=== PATIENT | female | born 1970 | race Caucasian/White ===

== ENCOUNTER 2017-04-18 15:26 | Emergency (ER) | payer SELFPAY ==
[2017-04-18] MEDS ORDERED: Metoclopramide HCl 10 MG/2 ML VIAL ONE (16:25)
[2017-04-18] MEDS ORDERED: diphenhydrAMINE 50 MG/ML VIAL ONE (16:25)
--- NOTE | 2017-04-18 17:05 | CT ---
NONCONTRAST HEAD CT: Comparison: 03-20-07 History: Headache. Technique: Noncontrast head CT is performed from skull base to skull vertex. FINDINGS: No parenchymal hemorrhage. No extraaxial hematoma. No midline shift. Basilar cisterns are patent. Br ain volume age appropriate. Cortical gottlieb white matter differentiation is preserved. Ventricles and sulci are patent and symmetric. Calvarium is intact. Adequate aeration of the sinuses and mastoid air cells. IMPRESSION: No acute intracranial process. POS: [facility]
[2017-04-18] MEDS ORDERED: Ketorolac Tromethamine 30 MG/ML VIAL ONE (17:08)
== END 2017-04-18 17:55 | disposition home or self-care (01) ==
LOC: ERS 15:26
DX: G43.909 Migraine, unspecified, not intractable, without status migrainosus (principal); J45.909 Unspecified asthma, uncomplicated; F41.9 Anxiety disorder, unspecified; Z79.899 Other long term (current) drug therapy
CPT/HCPCS: 70450; 96365; 96375; J1200; J1885; J2765

== ENCOUNTER 2020-05-27 11:38 | Outpatient (CLI) | payer BC ==
--- NOTE | 2020-05-27 13:24 | RAD ---
LEFT SHOULDER 3 VIEWS: HISTORY: Shoulder pain. FINDINGS: No fracture or dislocation. AC joint normally aligned. No significant degenerative change. IMPRESSION: No acute finding. POS: [facility]
== END 2020-05-27 11:39 | disposition home or self-care (01) ==
LOC: BICRAD 11:38
PROVIDERS: ATTEND Specialist
DX: M25.512 Pain in left shoulder (principal)

== ENCOUNTER 2022-07-24 12:14 | Emergency (ER) | payer BC, OTHER ==
[2022-07-24 13:29] LABS: SARS-CoV-2 NAA Rapid Test Not Detected (NotDetected)
[2022-07-24] MEDS ORDERED: Ondansetron ODT 4 MG TAB ONE (13:46)
== END 2022-07-24 14:04 | disposition home or self-care (01) ==
LOC: ERS 12:14
DX: J06.9 Acute upper respiratory infection, unspecified (principal); R11.2 Nausea with vomiting, unspecified; Z11.2 Encounter for screening for other bacterial diseases
CPT/HCPCS: 71045; Q0162

== ENCOUNTER 2022-08-07 20:15 | Emergency (ER) | payer OTHER | END 2022-08-07 21:49 | disposition left against medical advice (07) | LOC: ERS 20:15 | DX: Z53.21 Procedure and treatment not carried out due to patient leaving prior to being seen by health care provider (principal) ==

== ENCOUNTER 2024-01-03 16:40 | Outpatient (CLI) | payer OTHER | END 2024-01-03 16:41 | disposition home or self-care (01) | LOC: SCSRAD 16:40 | PROVIDERS: ATTEND Family Medicine | DX: S46.211A Strain of muscle, fascia and tendon of other parts of biceps, right arm, initial encounter (principal); M19.011 Primary osteoarthritis, right shoulder; M85.611 Other cyst of bone, right shoulder ==

== ENCOUNTER 2024-07-13 21:03 | Emergency (ER) | payer OTHER ==
[2024-07-13] MEDS ORDERED: Dexamethasone 10 MG/ML VIAL ONE (21:57)
[2024-07-13] MEDS ORDERED: Acetaminophen 500 MG TAB ONE (21:57)
[2024-07-13] MEDS ORDERED: Ketorolac Tromethamine 30 MG (1 mL) VIAL ONE (21:57)
[2024-07-13 22:48] LABS: #Basophils 0.05 10x3/uL (0.0-0.2); %Lymphocytes 39.8 % (21.0-51.0); %Monocytes 8.2 % (0.0-10.0); %Neutrophils 42.8 % (42.0-75.0); Hematocrit 36.2 % (36.0-47.0); Hemoglobin 12.1 g/dL (12.0-16.0); Mean Corpuscular HGB CONC 33.4 g/dL (32.0-36.0); Mean Corpuscular Hemoglobin 28.9 pg (27.0-31.0); Mean Corpuscular Volume 86.4 fL (78.0-98.0); Mean Platelet Volume 9.1 fL (7.4-10.4); Platelet Count 327 10x3/uL (130-400); RBC Distribution Width 12.7 % (11.5-14.5); Red Blood Cell (RBC) Count 4.19 mill/uL (4.20-5.40)
[2024-07-13 23:07] LABS: ALT (SGPT) 18 U/L (8-55); AST (SGOT) 18 U/L (5-34); Albumin 3.8 g/dL (3.5-5.0); Alkaline Phosphatase 95 U/L (40-110); Anion Gap 16 mmol/L (10-20); BUN (Urea Nitrogen) 14 mg/dL (9.8-20.1); Bilirubin, Total 0.2 mg/dL (0.2-1.2); Calc. Creatinine Clearance 0 mL/min (70-130); Calcium 9.3 mg/dL (7.8-10.44); Carbon Dioxide 20 mmol/L (22-29); Chloride 106 mmol/L (98-107); Estimated GFR 104; Globulin 3.1 g/dL (2.4-3.5); Glucose 95 mg/dL (70-105); Potassium 3.9 mmol/L (3.5-5.1); Protein, Total 6.9 g/dL (6.0-8.3); Sodium 138 mmol/L (136-145)
[2024-07-13 23:08] LABS: Troponin I Less than 0.010 ng/mL (< 0.028)
== END 2024-07-13 23:56 | disposition home or self-care (01) ==
LOC: ERS 21:03
DX: B02.9 Zoster without complications (principal); R29.700 NIHSS score 0; I10 Essential (primary) hypertension
CPT/HCPCS: 36415; 70450; 71045; 80053; 84484; 85025; 93005; 96372; J1100; J1885

== ENCOUNTER 2024-12-22 15:34 | Inpatient (IN) | payer OTHER ==
[2024-12-22] MEDS ORDERED: Ipratropium Bromide 2.5 ml Neb ONE (15:57)
[2024-12-22] MEDS ORDERED: methylPREDNISolone Sod Succ/PF 125 MG/2 ML VIAL ONE (15:57)
[2024-12-22] MEDS ORDERED: Albuterol 2.5 MG (3 mL) NEB ONE (15:58)
[2024-12-22] MEDS ORDERED: Magnesium 2 GM/50 ML BAG (IN WATER) ONE (15:58)
[2024-12-22 16:02] LABS: #Basophils 0.06 10x3/uL (0.0-0.2); #Eosinophils 0.67 10x3/uL (0.0-0.7); #Monocytes 0.36 10x3/uL (0.11-0.59); #Neutrophils 1.91 10x3/uL (1.40-6.50); %Basophils 1.2 % (0.0-1.0); %Eosinophils 13.3 % (0.0-10.0); %Lymphocytes 40.4 % (21.0-51.0); %Monocytes 7.1 % (0.0-10.0); %Neutrophils 37.8 % (42.0-75.0); Hematocrit 34.4 % (36.0-47.0); Hemoglobin 11.3 g/dL (12.0-16.0); Mean Corpuscular HGB CONC 32.8 g/dL (32.0-36.0); Mean Corpuscular Hemoglobin 29.6 pg (27.0-31.0); Mean Corpuscular Volume 90.1 fL (78.0-98.0); Mean Platelet Volume 9.5 fL (7.4-10.4); Platelet Count 334 10x3/uL (130-400); RBC Distribution Width 13.4 % (11.5-14.5); Red Blood Cell (RBC) Count 3.82 mill/uL (4.20-5.40); White Blood Cell (WBC) Count 5.05 10x3/uL (4.8-10.8)
[2024-12-22 16:21] LABS: Troponin I 0.099 ng/mL (< 0.028)
[2024-12-22 16:29] LABS: ALT (SGPT) 23 U/L (Less than 34); AST (SGOT) 54 U/L (11-34); Albumin 7.9 g/dL (3.1-4.5); Alkaline Phosphatase 71 U/L (40-110); Anion Gap 15 mmol/L (10-20); BUN (Urea Nitrogen) Less than 4 mg/dL (9.8-20.1); Bilirubin, Total 0.4 mg/dL (0.3-1.2); Calc. Creatinine Clearance 0 mL/min (70-130); Carbon Dioxide 24 mmol/L (22-29); Chloride 110 mmol/L (98-107); Estimated GFR 27; Globulin -1.1 g/dL (2.4-3.5); Glucose 94 mg/dL (70-105); Potassium 3.5 mmol/L (3.5-5.1); Protein, Total 6.8 g/dL (6.0-8.3); Sodium 145 mmol/L (136-145)
[2024-12-22 17:27] LABS: Actual Bicarbonate (HCO3v) 21.9 mEq/L (22-28); Analyzer IN Cardio ER; Base Excess -3.6 mEq/L (-2.0 to +3.0); Calcium, Ionized (venous) 1.09 mmol/L (1.16-1.32); Chloride (VBG) 107 mmol/L (98-106); Hematocrit-VBG 35 % (36.0-47.0); Hemoglobin (Hb) 11.8 g/dL (11.7-16.0); Potassium (VBG) 3.32 mmol/L (3.70-5.30); Sodium 141 mmol/L (133-146); pH (venous) 7.345 (7.32-7.43)
[2024-12-22] MEDS ORDERED: Aspirin Chewable 81 MG TAB ONE (18:09)
[2024-12-22] MEDS ORDERED: Acetaminophen 500 MG TAB ONE (18:09)
[2024-12-22 18:58] LABS: Phosphorus 4.1 mg/dL (2.5-4.5)
[2024-12-22 19:00] LABS: Anion Gap 15 mmol/L (10-20); BUN (Urea Nitrogen) 9 mg/dL (9.8-20.1); Calc. Creatinine Clearance 0 mL/min (70-130); Calcium 9.1 mg/dL (7.8-10.44); Carbon Dioxide 22 mmol/L (22-29); Chloride 109 mmol/L (98-107); Estimated GFR 86; Glucose 95 mg/dL (70-105); Potassium 3.5 mmol/L (3.5-5.1); Sodium 142 mmol/L (136-145)
[2024-12-22 19:59] LABS: Troponin I 0.086 ng/mL (< 0.028)
[2024-12-22] MEDS ORDERED: Albuterol 2.5 MG (3 mL) NEB NEB PRN (20:04)
[2024-12-22 21:01] LABS: Anion Gap 13 mmol/L (10-20); BUN (Urea Nitrogen) 8 mg/dL (9.8-20.1); Calc. Creatinine Clearance 0 mL/min (70-130); Calcium 8.7 mg/dL (7.8-10.44); Carbon Dioxide 21 mmol/L (22-29); Chloride 111 mmol/L (98-107); Estimated GFR 104; Glucose 103 mg/dL (70-105); Magnesium 2.3 mg/dL (1.6-2.6); Potassium 3.7 mmol/L (3.5-5.1); Sodium 141 mmol/L (136-145)
[2024-12-22] MEDS: Doxycycline 100 MG in Sodium Chloride 0.9% 100 ML IVPB SCH (21:16)
[2024-12-22] MEDS: Ipratropium/Albuterol 3 ML NEB NEB SCH (21:57)
[2024-12-22 22:34] VITALS: BMI 26.4
[2024-12-22 23:00] LABS: Troponin I 0.066 ng/mL (< 0.028)
[2024-12-22] MEDS: Benzonatate 100 MG CAP PO PRN (23:55)
[2024-12-22] MEDS: Melatonin 3 MG TAB PO PRN (23:55)
[2024-12-22] MEDS: methylPREDNISolone Sod Succ 40 MG VIAL IVP SCH (23:58)
[2024-12-23] MEDS ORDERED: Acetaminophen 325 MG TAB PO PRN
[2024-12-23] MEDS: Fioricet 325/50/40 mg Tablet PO PRN (01:23)
[2024-12-23 04:18] LABS: #Basophils Less than 0.03 10x3/uL (0.0-0.2); #Eosinophils Less than 0.03 10x3/uL (0.0-0.7); #Monocytes 0.06 10x3/uL (0.11-0.59); %Basophils 0.2 % (0.0-1.0); %Lymphocytes 9.8 % (21.0-51.0); %Monocytes 1.4 % (0.0-10.0); %Neutrophils 88.4 % (42.0-75.0); Hematocrit 37.2 % (36.0-47.0); Hemoglobin 11.6 g/dL (12.0-16.0); Mean Corpuscular HGB CONC 31.2 g/dL (32.0-36.0); Mean Corpuscular Hemoglobin 28.6 pg (27.0-31.0); Mean Corpuscular Volume 91.9 fL (78.0-98.0); Mean Platelet Volume 9.9 fL (7.4-10.4); Platelet Count 300 10x3/uL (130-400); RBC Distribution Width 13.5 % (11.5-14.5); Red Blood Cell (RBC) Count 4.05 mill/uL (4.20-5.40); White Blood Cell (WBC) Count 4.41 10x3/uL (4.8-10.8)
[2024-12-23 04:48] LABS: Anion Gap 11 mmol/L (10-20); BUN (Urea Nitrogen) 8 mg/dL (9.8-20.1); Calc. Creatinine Clearance 119 mL/min (70-130); Calcium 8.7 mg/dL (7.8-10.44); Carbon Dioxide 20 mmol/L (22-29); Chloride 110 mmol/L (98-107); Estimated GFR 105; Glucose 141 mg/dL (70-105); Magnesium 1.9 mg/dL (1.6-2.6); Potassium 4.2 mmol/L (3.5-5.1); Sodium 137 mmol/L (136-145)
[2024-12-23] MEDS: Budesonide 0.5 MG/2 ML NEB INH SCH (07:28)
[2024-12-23] MEDS: Enoxaparin 40 MG (0.4 mL) SYRINGE SC SCH (09:04)
[2024-12-23] MEDS: Ondansetron PF 4 MG/2 ML Vial IVP PRN (09:06)
[2024-12-23 11:42] VITALS: BP 123/77; TEMP 97.9
[2024-12-23] MEDS: ALPRAZolam 0.25 MG TAB PO PRN (14:28)
[2024-12-23] MEDS: SUMAtriptan Succinate 25 MG TAB PO SCH (14:30)
[2024-12-23] MEDS ORDERED: Montelukast Sodium 10 mg Tablet PO SCH (21:00)
[2024-12-25 13:13] LABS: A/G Ratio 1.3 (0.7-1.7); Albumin 3.6 g/dL (2.9-4.4); Alpha 1 0.3 g/dL (0.0-0.4); Alpha 2 0.8 g/dL (0.4-1.0); Gamma 0.7 g/dL (0.4-1.8); Globulin, Total 2.7 g/dL (2.2-3.9); M-Spike Not Observed g/dL (Not Observed)
[2024-12-25 13:14] LABS: Albumin-Ur 36.3 % (.); Alpha 2 - Ur 16.3 % (.); Beta-Ur 32.1 % (.); Gamma-Ur 4.3 % (.); M-Spike,% Not Observed % (Not Observed); Protein, Urine 4.9 mg/dL (Not Estab.)
== END 2024-12-23 18:52 | disposition home or self-care (01) | DRG 202 ==
LOC: ERS 15:34 → PCU 18:20
PROVIDERS: ADMIT Internal Medicine; ATTEND Internal Medicine
DX: J45.901 Unspecified asthma with (acute) exacerbation (principal); C90.00 Multiple myeloma not having achieved remission; N17.9 Acute kidney failure, unspecified; I5A Non-ischemic myocardial injury (non-traumatic); I31.39 Other pericardial effusion (noninflammatory); N18.4 Chronic kidney disease, stage 4 (severe); I10 Essential (primary) hypertension; F41.9 Anxiety disorder, unspecified; E83.52 Hypercalcemia; D64.9 Anemia, unspecified; Z98.890 Other specified postprocedural states; Z90.79 Acquired absence of other genital organ(s); Z87.09 Personal history of other diseases of the respiratory system; Z87.891 Personal history of nicotine dependence; Z79.899 Other long term (current) drug therapy
CPT/HCPCS: 36415; 36416; 71046; 71250; 74176; 80048; 80053; 82306; 82805; 83735; 83880; 83970; 84100; 84155; 84156; 84165; 84166; 84484; 85025; 87428; 93005; 93306; 94640; 96374; 96375; J1650; J2405; J2919; J3475; J7611; J7620; J7626; J7644

== ENCOUNTER 2025-04-19 08:07 | Outpatient (CLI) | payer OTHER | END 2025-04-19 08:08 | disposition home or self-care (01) | LOC: RAD 08:07 | PROVIDERS: ATTEND Internal Medicine | DX: R06.00 Dyspnea, unspecified (principal) | CPT/HCPCS: 71046 ==

== ENCOUNTER 2025-06-10 13:51 | Emergency (ER) | payer OTHER ==
[~2025-06-10 13:51] MED LIST: Iopamidol-370 76% 500 ML MDV (1 ML CHARGE) ONE
[2025-06-10] MEDS ORDERED: Acetaminophen 500 MG TAB ONE (14:52)
[2025-06-10 16:42] LABS: #Basophils 0.04 10x3/uL (0.0-0.2); #Eosinophils 0.03 10x3/uL (0.0-0.7); #Monocytes 0.28 10x3/uL (0.11-0.59); #Neutrophils 5.21 10x3/uL (1.40-6.50); %Basophils 0.6 % (0.0-1.0); %Eosinophils 0.4 % (0.0-10.0); %Lymphocytes 16.3 % (21.0-51.0); %Monocytes 4.2 % (0.0-10.0); %Neutrophils 78.2 % (42.0-75.0); Hematocrit 40.6 % (36.0-47.0); Hemoglobin 13.1 g/dL (12.0-16.0); Mean Corpuscular Hemoglobin 28.1 pg (27.0-31.0); Mean Corpuscular Volume 87.1 fL (78.0-98.0); Platelet Count 397 10x3/uL (130-400); Red Blood Cell (RBC) Count 4.66 mill/uL (4.20-5.40); White Blood Cell (WBC) Count 6.67 10x3/uL (4.8-10.8)
[2025-06-10 17:14] LABS: INR-International Normal Ratio 0.9; Prothrombin Time 12.6 sec (12.0-14.7)
[2025-06-10 17:15] LABS: PTT 29.2 sec (22.9-36.1)
[2025-06-10 17:17] LABS: ALT (SGPT) 24 U/L (Less than 34); AST (SGOT) 22 U/L (11-34); Albumin 4.3 g/dL (3.1-4.5); Alkaline Phosphatase 85 U/L (40-110); Anion Gap 16 mmol/L (10-20); BUN (Urea Nitrogen) 18 mg/dL (9.8-20.1); Bilirubin, Total 0.3 mg/dL (0.3-1.2); Calc. Creatinine Clearance 0 mL/min (70-130); Calcium 9.5 mg/dL (7.8-10.44); Carbon Dioxide 21 mmol/L (22-29); Chloride 108 mmol/L (98-107); Globulin 2.8 g/dL (2.4-3.5); Glucose 111 mg/dL (70-105); Potassium 4.5 mmol/L (3.5-5.1); Sodium 140 mmol/L (136-145)
== END 2025-06-10 19:19 | disposition home or self-care (01) ==
LOC: ERS 13:51
DX: R51.9 Headache, unspecified (principal); R07.89 Other chest pain; I10 Essential (primary) hypertension
CPT/HCPCS: 36415; 70496; 70498; 71045; 80053; 84484; 85025; 85610; 85730; 87428; 93005; Q0162; Q9967